=== PATIENT | male | born 1990 | race Caucasian/White ===

== ENCOUNTER 2022-05-30 16:56 | Emergency (ER) | payer OTHER, BC ==
[2022-05-30] MEDS ORDERED: Morphine 2 MG/ML SYRINGE IVPUSH ONE (17:58)
[2022-05-30] MEDS ORDERED: Propofol 200 MG/20 ML SDV IVPUSH ONE (18:14)
[2022-05-30] MEDS ORDERED: ceFAZolin 1 GM Vial IM ONE (19:09)
[2022-05-30] MEDS ORDERED: HYDROmorphone 1 MG/ML Syringe IVPUSH ONE (19:39)
== END 2022-05-30 21:00 | disposition home or self-care (01) ==
LOC: JD.ED 16:56
DX: S82.891A Other fracture of right lower leg, initial encounter for closed fracture (principal); V86.56XA Driver of dirt bike or motor/cross bike injured in nontraffic accident, initial encounter; Y92.410 Unspecified street and highway as the place of occurrence of the external cause
CPT/HCPCS: 27768; 36415; 71045; 73590; 73600; 80053; 85007; 85027; 85610; 85730; 96372; 96374; 96375; 99283; J0690; J1170; J2270; J2704; 27842; 99284